=== PATIENT | male | born 1995 ===

== ENCOUNTER 2018-10-30 14:22 | Emergency (ER) | payer BC ==
[2018-10-30 14:29] VITALS: BP 139/72
--- NOTE | 2018-10-30 15:29 | Emergency Department Report ---
ED Neck Pain HPI Chief Complaint: Neck Pain/Injury Stated Complaint: NECK/STOMACH PAIN Time Seen by Provider: 10/30/18 15:17 Duration: 2 Days Neck Pain Location: Posterior Neck, Other (irregular bowel movement) Severity: moderate (6/10) Mechanism: Awkward Position, Unsure Symptoms: Yes Pain with Movement (back of neck), No Radiation to Left Upper Ext, No Radiation to Right Upper Ext, No Numbness, No Weakness, No Previous History Other History: This is a 23-year-old male here reported neck stiffness posterior neck. He states that he woke up 2 days ago in the morning with pain to the back of his neck. Denies any headache, trauma or fever or chills. Denies any nausea or vomiting. Patient is also complaining irregular bowel movement last one was yesterday. He said he usually goes every day. No medication taken for neck pain. Denies other medical problem. Denies any nausea or vomiting or dizziness. Denies any abdominal back pain. Denies any urinary burning, frequency or urgency. ED Review of Systems ROS: Stated complaint: NECK/STOMACH PAIN Other details as noted in HPI Constitutional: denies: chills, fever, weakness ENT: denies: throat pain, congestion Respiratory: denies: cough, shortness of breath, wheezing Cardiovascular: denies: chest pain, palpitations, edema, syncope Gastrointestinal: constipation. denies: abdominal pain, nausea, vomiting, diarrhea, hematemesis, melena, hematochezia Genitourinary: denies: urgency, dysuria, hematuria, discharge Musculoskeletal: arthralgia. denies: back pain, joint swelling, myalgia Skin: denies: rash Neurological: denies: headache, weakness, numbness, paresthesias, confusion, abnormal gait, vertigo ED Past Medical Hx - Past Medical History Previous Medical History?: No - Surgical History Past Surgical History?: No - Family History Family history: hypertension - Social History Smoking Status: Never Smoker Substance Use Type: None - Medications Home Medications: Home Medications Medication Instructions Recorded Confirmed Last Taken Type Cyclobenzaprine [Flexeril 10mg] 10 mg PO Q12H PRN #14 tablet 10/30/18 Unknown Rx Ibuprofen [Motrin] 600 mg PO Q8H PRN #12 tablet 10/30/18 Unknown Rx Neck Pain Exam - Exam General: Vital signs noted. No distress. Alert and acting appropriately. This is a 23-year-old male well-nourished well-developed in no acute distress. HEENT: No Facial Pain, No Scalp Tenderness, No Contusion, No Abrasion, No Laceration Neck Pain: Yes Midline Tenderness (stiffness and pain), Yes Pain with Flexion, Yes pain with R Lateral Flexion, Yes Pain with L Lateral Flexion, No Right Paraspinal Tenderness, No Left Paraspinal Tenderness, No Right Trapezius Tenderness, No Left Trapezius Tenderness, No Pain with Rotation Right, No Pain with Rotation Left, No Pain with Extension Chest: Yes Clear Lung Sounds (bilateral), No Pain with Respirations Heart: Yes Regular, No Murmur Back: No Thoracic Tenderness, No Lumbar Tenderness Neuro: Yes Normal Reflexes, No Numbness, No Weakness, No Radicular Deficits Exam: Abdomen: Nontender to palpation in all quadrants, no guarding or rebound tenderness. No rigidity or distention. Normal bowel sounds. No CVA tenderness ED Course Vital Signs 10/30/18 14:26 Temperature 98.1 F Pulse Rate 72 Respiratory 16 Rate Blood Pressure 139/72 O2 Sat by Pulse 98 Oximetry - Reevaluation(s) Reevaluation #1: 10/30/18 17:35 X-ray C-spine dictated by radiologist and report reviewed by myself. No acute findings \ Reevaluation #2: 10/30/18 18:51 Patient received Flexeril 10 mg by mouth and [place] 5/325 one tablet by mouth in the emergency room which relieved his pain. ED Medical Decision Making - Radiology Data Radiology results: report reviewed X-ray of C-spine dictated by radiologist report reviewed by myself. No acute findings. Findings [facility] [address] [place] [address] XRay Report Signed Patient: DYLAN GREGORY MR#: [id number] : 1995 Acct:[id number] Age/Sex: 23 / M ADM Date: 10/30/18 Loc: ED Attending Dr: Ordering Physician: GARY PANTOJA Date of Service: 10/30/18 Procedure(s): XR spine cervical 2-3V Accession Number(s): [id number] cc: GRAY PANTOJA Fluoro Time In Minutes: FINAL REPORT EXAM: XR SPINE CERVICAL 2-3V HISTORY: neck pain, nontraumatic, C-spine pain TECHNIQUE: AP, lateral, swimmer's and open-mouth odontoid radiographs of the c ervical spine. PRIORS: None. FINDINGS: The cervical spine is imaged from C1 through T2. Normal alignment. No vertebral body fracture. The disc spaces are maintained. No prevertebral soft tissue swelling. The lateral masses of C1 and C2 are in normal alignment. IMPRESSION: Normal cervical spine. Transcribed By: MG Dictated By: ANDRZEJ TINEO MD Electronically Authenticated By: ANDRZEJ TINEO MD Signed Date/Time: 10/30/181638 DD/ 40 TD/TT: 10/30/181640 - Medical Decision Making This is a 23-year-old male here reports that he woke up 2 mornings ago with neck stiffness to the back of his neck. He said he think he slept wrong but he wanted to be sure because it has been ongoing for 2 days. He denies any trauma. Patient is also complaining of irregular bowel movements and that he went yesterday but he did not go today to usually go every day. Patient was given [place] 5/325 mg one tablet by mouth and Flexeril 10 g by mouth for neck pain which relieved this pain. Patient will be discharged home on Flexeril, Motrin and Dulcolax tablets. I encouraged him to increase his fluid intake and also to increase his fiber intake to include Green and oatmeal and he voiced understanding. Patient discharged home in stable condition. Vital signs stable afebrile and discharged home with his family. - Differential Diagnosis torticollis, neck strain, degenerative disc disease, MSK pain Critical care attestation.: If time is entered above; I have spent that time in minutes in the direct care of this critically ill patient, excluding procedure time. ED Disposition Clinical Impression: Stiffness of neck, Neck pain without injury Disposition: DC-01 TO HOME OR SELFCARE Is pt being admited?: No Does the pt Need Aspirin: No Condition: Stable Instructions: Neck Exercises (GEN), Arthralgia (ED) Additional Instructions: Please follow discharge instruction on neck exercises Flexeril and Motrin for pain but please do not drive or operate heavy machinery while taking Flexeril as it causes drowsiness Return to the emergency room, if your condition worsens Referrals: PRIMARY CARE, [Primary Care Provider] - 2-3 Days [facility] [Outside] - 2-3 Days Forms: Work/School Release Form(ED)
[2018-10-30] MEDS ORDERED: FLEXERIL PO ONE (15:33)
[2018-10-30] MEDS ORDERED: NORCO 5/325 PO ONE (15:33)
--- NOTE | 2018-10-30 16:39 | XRay Report ---
FINAL REPORT EXAM: XR SPINE CERVICAL 2-3V HISTORY: neck pain, nontraumatic, C-spine pain TECHNIQUE: AP, lateral, swimmer's and open-mouth odontoid radiographs of the cervical spine. PRIORS: None. FINDINGS: The cervical spine is imaged from C1 through T2. Normal alignment. No vertebral body fracture. The disc spaces are maintained. No prevertebral soft tissue swelling. The lateral masses of C1 and C2 are in normal alignment. IMPRESSION: Normal cervical spine.
== END 2018-10-30 19:15 | disposition home or self-care (01) ==
LOC: ED 14:22
DX: M43.6 Torticollis (principal); M54.2 Cervicalgia
CPT/HCPCS: 72040